=== PATIENT | female | born 2000 | race Caucasian/White ===

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

== ENCOUNTER 2024-01-31 23:41 | Inpatient (IN) | payer OTHER ==
[2024-02-01] MEDS: Lactated Ringers 1,000 ML IV SCH (00:55)
[2024-02-01] MEDS: Oxytocin/Normal Saline 30 UNIT/500 ML BAG IV SCH (00:55)
[2024-02-01] MEDS ORDERED: Methylergonovine 0.2 MG Tab PO PRN (01:12)
[2024-02-01] MEDS ORDERED: Misoprostol 400 MCG (4 X 100 MCG TAB) RECTAL PRN (01:12)
[2024-02-01] MEDS ORDERED: Simethicone 80 MG Tab.Chew PO PRN (01:12)
[2024-02-01] MEDS ORDERED: Carboprost Tromethamine 250 MCG/1 ML Amp IM PRN (01:12)
[2024-02-01] MEDS ORDERED: Oxytocin 10 Units/1 ML SDV IM PRN (01:12)
[2024-02-01] MEDS ORDERED: Sodium Chloride 0.9% 10 ML Syringe FLUSH PRN (01:12)
[2024-02-01 01:22] LABS: HEMATOCRIT 38.2 % (37.0-47.0); HEMOGLOBIN 13.6 g/dL (12.0-16.0); MEAN CORPUSCULAR HEMOGLOBIN 33.9 pg (27.0-34.0); MEAN CORPUSCULAR HGB CONC 35.6 g/dL (33.0-35.0); MEAN CORPUSCULAR VOLUME 95.3 fL (80-100); RED BLOOD CELL COUNT 4.01 10^6/uL (4.2-5.4); WHITE BLOOD CELL COUNT,WBC 16.6 10^3/uL (5.0-10.0)
[2024-02-01] MEDS: Benzocaine/Menthol 20%-0.5% Spray 78 GM Cannister TOP PRN (01:42)
[2024-02-01] MEDS: Witch Hazel Medicated Pads 100/Jar TOP PRN (01:42)
[2024-02-01] MEDS: Ibuprofen 800 MG Tab PO SCH (01:43)
[2024-02-01 02:54] LABS: APPEARANCE,URINE CLEAR (CLEAR); BILIRUBIN,URINE NEGATIVE (NEGATIVE); COLOR,URINE YELLOW (YELLOW); GLUCOSE,URINE NEGATIVE (NEGATIVE); KETONES,URINE TRACE (NEGATIVE); LEUKOCYTE ESTERASE,URINE NEGATIVE (NEGATIVE); NITRITE,URINE NEGATIVE (NEGATIVE); OCCULT BLOOD,URINE MODERATE (NEGATIVE); PROTEIN,URINE TRACE (NEGATIVE); UROBILINOGEN,URINE 0.2 mg/dL (0.2-1.0)
[2024-02-01 02:55] LABS: CREATININE 0.84 mg/dL (0.55-1.02); EST CRCL DRUG DOSING (CG) 89.95 mL/min; URIC ACID 6.2 mg/dL (2.6-6.0)
[2024-02-01] MEDS: Labetalol 20 MG/4 ML Syringe IVPUSH ONE (02:55)
[2024-02-01] MEDS: Tranexamic Acid 1,000 MG in Sodium Chloride 0.9% 100 ML IV PRN (03:03)
[2024-02-01] MEDS: Methylergonovine 0.2 MG Tab PO SCH ×2 (03:03→10:22)
[2024-02-01 03:06] LABS: CREATININE,URINE RAND 140.92 mg/dL (No establ ref range); PROTEIN CREATININE RATIO,URINE 222.8 mg/g (<150.0); PROTEIN,URINE RANDOM 31.4 mg/dL (0.0-11.9)
[2024-02-01] MEDS: Docusate Sodium 100 MG Cap PO PRN (09:35)
[2024-02-01] MEDS: Prenatal Multivitamin with Calcium/Folic Acid/Iron Tab PO SCH (09:35)
[2024-02-01] MEDS: Acetaminophen 325 MG Tab PO PRN (11:54)
[2024-02-01] MEDS: Labetalol 100 MG Tab PO SCH (13:12)
[2024-02-02 07:41] LABS: HEMATOCRIT 32.3 % (37.0-47.0); HEMOGLOBIN 11.1 g/dL (12.0-16.0); MEAN CORPUSCULAR HGB CONC 34.4 g/dL (33.0-35.0); MEAN CORPUSCULAR VOLUME 99.1 fL (80-100); RED BLOOD CELL COUNT 3.26 10^6/uL (4.2-5.4); WHITE BLOOD CELL COUNT,WBC 11.9 10^3/uL (5.0-10.0)
== END 2024-02-02 12:30 | disposition home or self-care (01) | DRG 807 ==
LOC: DL.OBCHECK 23:41 → DL.OB 23:57 → OBSVTOIN 02-01 00:49
PROVIDERS: ADMIT Family Medicine; ATTEND Family Medicine
PROC: 10E0XZZ Delivery of Products of Conception, External Approach (ICD-10-PCS; principal; 2024-02-01)
PROC: 10907ZC Drainage of Amniotic Fluid, Therapeutic from Products of Conception, Via Natural or Artificial Opening (ICD-10-PCS; 2024-02-01)
DX: O48.0 Post-term pregnancy (principal); Z37.0 Single live birth; Z3A.40 40 weeks gestation of pregnancy; O99.814 Abnormal glucose complicating childbirth
CPT/HCPCS: 36415; 59409; 81003; 82565; 82570; 83615; 84156; 84450; 84460; 84520; 84550; 85027; A9270-GY; C1729; J1920; J2590; J3490; J7120